=== PATIENT | female | born 1975 | race Caucasian/White ===

== ENCOUNTER 2018-10-01 22:21 | Emergency (ER) | payer MEDICAID, OTHER ==
[~2018-10-01] VITALS: Ht 149.9 cm; Wt 69.7 kg
[2018-10-01 22:39] VITALS: Ht 149.9 cm; Wt 69.7 kg
--- NOTE | 2018-10-02 01:37 | ERD ---
ER Documentation Chief Complaint Chief Complaint ADAMS since yesterday, popped blood vessel in L eye, fever/cough/ST/body aches HPI This is a very pleasant 43-year-old female comes in with points of headache since yesterday. Patient says she "popped "a blood vessel in her eye yesterday. She also states she has not been taking her blood pressure medications because her Medi-Rufus ran out. She is noticed that her blood pressures been severely elevated. She had a headache which is mild to moderate intensity. Denies focal neurological complaints. Denies any fevers or chills. Denies any nausea or vomiting. Denies any other current issues. ROS All systems reviewed and are negative except as per history of present illness. Allergies Allergies: Coded Allergies: No Known Allergy (Unverified , 10/01/18) Physical Exam Vitals Vital Signs Date Temp Pulse Resp B/P (MAP) Pulse Ox O2 O2 Flow FiO2 Time Delivery Rate 10/01/18 85 17 156/96 100 Room Air 23:24 (116) 10/01/18 98.9 78 16 211/112 98 22:39 (145) Physical Exam Const: No acute distress Head: Atraumatic Eyes: Normal Conjunctiva ENT: Normal External Ears, Nose and Mouth. Neck: Full range of motion. No meningismus. Resp: Clear to auscultation bilaterally Cardio: Regular rate and rhythm, no murmurs Abd: Soft, non tender, non distended. Normal bowel sounds Skin: No petechiae or rashes Back: No midline or flank tenderness Ext: No cyanosis, or edema Neur: Awake and alert Psych: Normal Mood and Affect Result Diagram: 10/01/18234910/01/18 235 Results 24 hrs Laboratory Tests Test 10/01/18 23:50 10/01/18 23:56 White Blood Count 11.4 10^3/ul Red Blood Count 5.37 10^6/ul Hemoglobin 14.7 g/dl Hematocrit 45.5 % Mean Corpuscular Volume 84.7 fl Mean Corpuscular Hemoglobin 27.4 pg Mean Corpuscular Hemoglobin Concent 32.3 g/dl Red Cell Distribution Width 13.1 % Platelet Count 405 10^3/UL Mean Platelet Volume 12.0 fl Immature Granulocytes % 0.900 % Neutrophils % 46.0 % Lymphocytes % 37.1 % Monocytes % 10.9 % Eosinophils % 4.4 % Basophils % 0.7 % Nucleated Red Blood Cells % 0.0 /100WBC Immature Granulocytes # 0.100 10^3/ul Neutrophils # 5.2 10^3/ul Lymphocytes # 4.2 10^3/ul Monocytes # 1.2 10^3/ul Eosinophils # 0.5 10^3/ul Basophils # 0.1 10^3/ul Nucleated Red Blood Cells # 0.0 10^3/ul Prothrombin Time 11.7 Sec Prothrombin Time Ratio 0.9 INR International Normalized Ratio 0.85 Activated Partial Thromboplast Time 31.2 Sec Sodium Level 141 mmol/L Potassium Level 5.0 mmol/L Chloride Level 105 mmol/L Carbon Dioxide Level 25 mmol/L Anion Gap 11 Blood Urea Nitrogen 14 mg/dl Creatinine 0.85 mg/dl Est Glomerular Filtrat Rate mL/min > 60 mL/min Glucose Level 94 mg/dl Calcium Level 9.9 mg/dl Troponin I < 0.012 ng/ml POC Beta HCG, Qualitative NEGATIVE Procedures/MDM EKG: Rate/Rhythm: [Normal Sinus Rhythm] QRS, ST, T-waves: [No changes consistent w/ acute ischemia] Impression: [No evidence of ischemia or arrhythmia] Chest X-ray 1V Interpreted by me: Soft Tissue: No acute abnormalities Bones: No acute abnormalities Mediastinum/Cardiac Silhouette/Lungs: [No acute abnormalities] CT of the head is read as negative by the radiologist. Please see his full dictation full report. Medical decision making patient's neurologic symptoms have stabilized while they have been evaluated in the department and are appropriate for outpatient work up. No e/o meningitis, intracranial bleed, seizure, stroke. Patient's blood pressure was elevated (>120/80) but appears stable without evidence of hypertension emergency or urgency. The patient was counseled about the risks of hypertension and urged to pursue outpatient monitoring and therapy within a week with their primary care physician. Departure Diagnosis: Primary Impression: Headache Headache type: unspecified Headache chronicity pattern: unspecified pattern Intractability: not intractable Qualified Codes: R51 - Headache Additional Impression: Subconjunctival hemorrhage Laterality: unspecified laterality Qualified Codes: H11.30 - Conjunctival hemorrhage, unspecified eye Condition: Stable ROMEO [place] Oct 02, 2018 01:37
[2018-10-02] MEDS ORDERED: LISI-471 PO (01:40)
[2018-10-02 01:54] VITALS: BP 174/115; PULSE 72; RESP 16
[2018-10-02] MEDS ORDERED: LISINOPRIL 20 MG TAB PO ONE (02:00)
== END 2018-10-02 02:13 | disposition home or self-care (01) ==
LOC: E/R 22:21
DX: R51 Headache (principal); R40.2142 Coma scale, eyes open, spontaneous, at arrival to emergency department; R40.2362 Coma scale, best motor response, obeys commands, at arrival to emergency department; H11.30 Conjunctival hemorrhage, unspecified eye; R07.9 Chest pain, unspecified
CPT/HCPCS: 36415; 70450; 71045; 80048; 81025; 84484; 85025; 85610; 85730; 93005; Z7502; Z7610